=== PATIENT | female | born 1950 | race Caucasian/White ===

== ENCOUNTER 2020-06-21 05:10 | Outpatient (REF) | payer MEDICARE, SELFPAY | END 2020-06-21 05:11 | disposition home or self-care (01) | LOC: HO.RADIR 05:10 | PROVIDERS: Visit Provider Anesthesiology | DX: G89.4 Chronic pain syndrome (principal); M46.1 Sacroiliitis, not elsewhere classified; M96.1 Postlaminectomy syndrome, not elsewhere classified | CPT/HCPCS: 62370 ==

== ENCOUNTER → 2020-07-28 15:41 | Outpatient (BNVA) | payer MEDICARE, SELFPAY | PROVIDERS: PCP Internal Medicine; Visit Provider Anesthesiology | DX: M46.1 Sacroiliitis, not elsewhere classified (principal); G89.4 Chronic pain syndrome; M96.1 Postlaminectomy syndrome, not elsewhere classified | CPT/HCPCS: Q3014 ==

== ENCOUNTER 2020-08-16 05:25 | Outpatient (REF) | payer MEDICARE, SELFPAY | END 2020-08-16 05:26 | disposition home or self-care (01) | LOC: HO.RADIR 05:25 | PROVIDERS: Visit Provider Anesthesiology | DX: Z13.89 Encounter for screening for other disorder (principal) ==

== ENCOUNTER 2020-12-20 06:22 | Outpatient (REF) | payer MEDICARE, SELFPAY | END 2020-12-20 06:23 | disposition home or self-care (01) | LOC: HO.RADIR 06:22 | PROVIDERS: Visit Provider Anesthesiology | DX: Z13.89 Encounter for screening for other disorder (principal) ==

== ENCOUNTER → 2021-05-08 13:27 | Outpatient (BNVA) | payer MEDICARE, SELFPAY | PROVIDERS: PCP Internal Medicine; Visit Provider Anesthesiology | DX: M46.1 Sacroiliitis, not elsewhere classified (principal); M96.1 Postlaminectomy syndrome, not elsewhere classified; G89.4 Chronic pain syndrome; I87.2 Venous insufficiency (chronic) (peripheral) | CPT/HCPCS: 99212 ==

== ENCOUNTER → 2021-06-20 13:22 | Outpatient (BNVA) | payer MEDICARE, SELFPAY | PROVIDERS: PCP Internal Medicine; Visit Provider Surgery Vascular Surgery | DX: I83.12 Varicose veins of left lower extremity with inflammation (principal) | CPT/HCPCS: 99202 ==

== ENCOUNTER 2021-07-05 12:51 | Outpatient (REF) | payer MEDICARE, SELFPAY ==
--- NOTE | ~2021-07-05 | US_ITS ---
EXAMINATION: US VENOUS LOWER EXTREMITY, BILATERAL (REFLUX EXAM) CLINICAL INDICATION: Bilateral lower extremity varicose veins. COMPARISON: None. TECHNIQUE: Color flow triplex imaging and compression Doppler was performed to evaluate both the deep and the superficial systems bilaterally. To evaluate the superficial system, the examination was performed in the upright position. Color-flow Doppler ultrasound and compression ultrasound were utilized. In addition, maneuvers were utilized to demonstrate reflux. FINDINGS: SUPERFICIAL ULTRASOUND WITH DOPPLER OF RIGHT LOWER EXTREMITY Great Saphenous Vein: Saphenofemoral junction/proximal thigh: 0.5 cm; Reflux: No evidence of reflux. Max diameter: 0.5 Min diameter: 0.2 Reflux: Segmental reflux below the knee measuring greater than 1 second. Duplicated Medial Great Saphenous Vein: Max Diameter: None Imaged Reflux: NA Duplicated Lateral Great Saphenous Vein: Diameter: None Imaged Reflux: NA Small Saphenous Vein: Saphenopopliteal junction: 0.3 cm; Reflux: No evidence of reflux. Min diameter: 0.2 Reflux: Segmental reflux at the distal calf measuring greater than 3.3 seconds Vein Of Giacomini: None Imaged. Perforators: Location: Thigh and proximal calf measuring 2 and 3 mm respectively. 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 Varicosities: Location: Mid thigh, 4 mm Reflux: None DEEP VENOUS ULTRASOUND OF THE RIGHT LOWER EXTREMITY: Common Femoral Vein: Compressible, normal respiratory variation and augmented flow. Femoral vein: Compressible, normal color flow and augmentation. Popliteal Vein: Compressible, normal augmentation. Deep Reflux: There is no evidence of reflux in the deep system in either the common femoral vein or the popliteal vein. Daniel's Cyst: There is no evidence of a Daniel's cyst. SUPERFICIAL ULTRASOUND WITH DOPPLER OF LEFT LOWER EXTREMITY Great Saphenous Vein: Saphenofemoral junction/proximal thigh: 0.6 cm; Reflux: Greater than 0.5 seconds of reflux Max diameter: 0.6 Min diameter: 0.2 Reflux: There is reflux throughout the proximal great saphenous vein measuring between 0.5 seconds and 3.3 seconds. Duplicated Medial Great Saphenous Vein: Max Diameter: 0.3 cm at the junction Reflux: None Duplicated Lateral Great Saphenous Vein: Diameter: 0.3 cm at the junction Reflux: None Small Saphenous Vein: Saphenopopliteal junction: 0.2 cm; Reflux: No evidence of reflux. Min diameter: 0.1 Reflux: No evidence of reflux. Vein Of Giacomini: None Imaged. PERFORATORS: Location: Mid thigh and at the knee, measuring 3 and 2 mm respectively. Reflux: None Varicosities: Location: None Imaged Reflux: NA DEEP VENOUS ULTRASOUND OF THE LEFT LOWER EXTREMITY: Common Femoral Vein: Compressible, normal respiratory variation and augmented flow. Femoral vein: Compressible, normal color flow and augmentation. Popliteal Vein: Compressible, normal augmentation. Deep Reflux: There is no evidence of reflux in the deep system in either the common femoral vein or the popliteal vein. Daniel's Cyst: There is no evidence of a Daniel's cyst. US/US venous duplex LE BI IMPRESSION: 1. Left great saphenous venous insufficiency. 2. Segmental right great saphenous venous insufficiency below the knee. 3. Segmental right small saphenous venous insufficiency at the distal calf. 4. No evidence of DVT or deep venous insufficiency.
== END 2021-07-05 12:52 | disposition home or self-care (01) ==
LOC: HO.US 12:51
PROVIDERS: Visit Provider Surgery Vascular Surgery
DX: I83.12 Varicose veins of left lower extremity with inflammation (principal)
CPT/HCPCS: 93970

== ENCOUNTER → 2021-07-18 13:03 | Outpatient (BNVA) | payer MEDICARE, SELFPAY | PROVIDERS: PCP Internal Medicine; Visit Provider Surgery Vascular Surgery | DX: I83.12 Varicose veins of left lower extremity with inflammation (principal) | CPT/HCPCS: 99212 ==

== ENCOUNTER → 2021-07-19 10:53 | Outpatient (BNVA) | payer MEDICARE, SELFPAY | PROVIDERS: PCP Internal Medicine; Visit Provider Anesthesiology | DX: M46.1 Sacroiliitis, not elsewhere classified (principal); M96.1 Postlaminectomy syndrome, not elsewhere classified; I87.2 Venous insufficiency (chronic) (peripheral); G89.4 Chronic pain syndrome; Z96.89 Presence of other specified functional implants | CPT/HCPCS: 99212 ==

== ENCOUNTER → 2021-07-28 07:30 | Outpatient (BNVA) | payer MEDICARE, SELFPAY | PROVIDERS: PCP Internal Medicine; Visit Provider Surgery Vascular Surgery | DX: I83.12 Varicose veins of left lower extremity with inflammation (principal) | CPT/HCPCS: 36475 ==

== ENCOUNTER 2021-07-31 12:48 | Outpatient (REF) | payer MEDICARE, SELFPAY ==
--- NOTE | ~2021-07-31 | US_ITS ---
EXAMINATION: US VENOUS ULTRASOUND WITH DOPPLER LOWER EXTREMITY, LEFT CLINICAL INFORMATION: Pain and swelling post RFA. Rule out DVT. COMPARISON: Previous exam June 2021 TECHNIQUE: Ultrasound of the deep veins is performed from the hip to the calf with compression sonography and color and pulse Doppler assessment. Spectral analysis with color-flow imaging is performed. FINDINGS: There is normal venous compression and respiratory variation and augmented flow. The visualized common femoral vein, superficial femoral vein, profunda femoral vein, popliteal vein, and the trifurcation region shows no evidence of deep venous thrombosis. There is echogenic material seen in the left greater saphenous vein post ablation. This is 2 cm from the saphenofemoral junction. The left greater saphenous vein is closed. The contralateral right common femoral vein is patent. US/US venous duplex LE LT IMPRESSION: No DVT demonstrated in the left lower extremity.
== END 2021-07-31 12:49 | disposition home or self-care (01) ==
LOC: HO.HMGCX 12:48
PROVIDERS: PCP Internal Medicine; Visit Provider Surgery Vascular Surgery
DX: M79.605 Pain in left leg (principal)
CPT/HCPCS: 93971

== ENCOUNTER → 2021-08-10 14:29 | Outpatient (BNVA) | payer MEDICARE, SELFPAY | PROVIDERS: PCP Internal Medicine; Visit Provider Surgery Vascular Surgery | DX: I83.12 Varicose veins of left lower extremity with inflammation (principal) | CPT/HCPCS: 99212 ==

== ENCOUNTER 2021-08-15 06:01 | Outpatient (REF) | payer MEDICARE, SELFPAY | END 2021-08-15 06:02 | disposition home or self-care (01) | LOC: HO.RADIR 06:01 | PROVIDERS: Visit Provider Anesthesiology | DX: M46.1 Sacroiliitis, not elsewhere classified (principal); G89.4 Chronic pain syndrome; M96.1 Postlaminectomy syndrome, not elsewhere classified; I87.2 Venous insufficiency (chronic) (peripheral) | CPT/HCPCS: 20552; J3300 ==

== ENCOUNTER → 2021-09-13 10:01 | Outpatient (BNVA) | payer MEDICARE, SELFPAY | PROVIDERS: PCP Internal Medicine; Visit Provider Anesthesiology | DX: M46.1 Sacroiliitis, not elsewhere classified (principal); M96.1 Postlaminectomy syndrome, not elsewhere classified; G89.4 Chronic pain syndrome; I87.2 Venous insufficiency (chronic) (peripheral) | CPT/HCPCS: Q3014 ==

== ENCOUNTER → 2021-12-18 13:18 | Outpatient (BNVA) | payer MEDICARE, SELFPAY | PROVIDERS: PCP Internal Medicine; Visit Provider Internal Medicine | DX: M25.562 Pain in left knee (principal); G57.82 Other specified mononeuropathies of left lower limb | CPT/HCPCS: 99212 ==

== ENCOUNTER 2022-01-03 05:54 | Outpatient (REF) | payer MEDICARE, SELFPAY | END 2022-01-03 05:55 | disposition home or self-care (01) | LOC: HO.RADIR 05:54 | PROVIDERS: Visit Provider Internal Medicine | DX: G57.82 Other specified mononeuropathies of left lower limb (principal); M25.562 Pain in left knee | CPT/HCPCS: 64447; J2795; Q9967 ==

== ENCOUNTER → 2022-01-15 16:16 | Outpatient (BNVA) | payer MEDICARE, SELFPAY | PROVIDERS: PCP Internal Medicine; Visit Provider Internal Medicine | DX: Z13.89 Encounter for screening for other disorder (principal) | CPT/HCPCS: Q3014 ==

== ENCOUNTER 2022-03-21 09:55 | Day surgery (SDC) | payer MEDICARE, SELFPAY ==
[2022-03-21 10:02] VITALS: BMI 28.1
[2022-03-21 10:11] VITALS: BP 132/70; PULSE 69; RESP 16; TEMP 36.3; O2SAT 99
--- NOTE | 2022-03-21 11:16 | MHC.SHP ---
Pre-Procedural Eval Section A Date of Service: 03/21/22 The patient is an INPATIENT: No Changes since office visit: Yes Patient answered all questions The History & Physical has been completed within 30 days and I have reviewed it.: No Section B Chief Complaint: Pain in left knee Relevant Family History (Specify if Yes): No Relevant Social History: None Present Medications: see Short Stay Collaborative assessment Medical History: No relevant PMH History of Previous Operations: Relevant previous surgery/procedure and date(s) (left TKR) Allergies: Allergies Allergy/AdvReac Type Severity Reaction Status Date / Time No Known Allergies Allergy Verified 01/29/22 14:24 Review of Systems Sugical H&P ROS: Negative: Constitution, Cardiovascular, Respiratory and Neurological Exam Surgical H&P Exam: Normal: HEENT, Normal: Heart, Normal: Lungs and Normal: Extremities Plan Diagnosis/Plan: Unchanged I have reviewed the history and physical and performed a pertinent physical examination on my patient. No changes have occurred unless specified.
--- NOTE | 2022-03-21 11:17 | P.BOP_ITS ---
Brief Operative Note Date of Service: 03/21/22 Pre-op diagnosis: Chronic left knee pain Post-op diagnosis: same Procedure: Left saphenous nerve temporary peripheral nerve stimulator placement Implants: [employer] PNS system Surgeon: Kieran Bangura MD Anesthesia: local Was an Bullet Lubricating Machine Operator used for this Procedure?: No Estimated blood loss (mL): 2 Pathology: none sent Condition: stable Disposition: PACU
[2022-03-21 12:06] VITALS: BP 151/75; PULSE 61; RESP 17; TEMP 36.7; O2SAT 99
[2022-03-21 12:21] VITALS: BP 146/77; PULSE 63; RESP 18; TEMP 36.7; O2SAT 99
--- NOTE | 2022-03-21 13:35 | W.PM.OPN ---
Operative Note Operative Note Date of Service: 03/21/22 Narrative: Peripheral Nerve Stimulation Temporary Lead Placement, Ultrasound-Guided, Saphenous Nerve, Left ? After the risks, benefits and alternatives were discussed with the patient and informed consentwas obtained, patient was placed in the supine position and padded to foster comfort. Appropriate skin and bony landmarks were identified, and pertinent vascular structures were located. The skin overlying the needle entry site was prepped and draped in sterile fashion. Ultrasound was used to identify the femoral artery, the femoral vein and the saphenous nerve. After identifying and marking the intended target along the course of the Saphenous nerve, the skin around the planned entry point and the subcutaneous tissues were injected with local anesthetic. An introducer needle and stimulating probe were assembled, inserted and advanced along the intended course of the saphenous; nerve, taking care to maintain the proper depth of insertion as the introducer was advanced under ultrasound guidance. The introducer needle was delivered to a location in proximity to the nerve taking care not to puncture the femoral artery or the vein. Multiple stimulation parameters were used to deliver stimulation to the saphenous nerve in concert with stimulating at multiple positions around the nerve. Nerve target acquisition was confirmed noting generation of sensory and mild motor effects (paresthesia, muscle tension, etc) in the medial knee; corresponding to the distribution of the saphenous nerve. Various electrical parameter combinations were tested, and the lead location was adjusted (physically relocated under ultrasound guidance) until the patient indicated medial knee paresthesia and tension overlapping the distribution of the patient?s typical region of pain. The stimulating probe was removed from the introducer and a percutaneous lead was guided through the needle and delivered to a location in similar proximity to the nerve. Final location was verified with electrical stimulation and documented. The introducer needle was removed, and the exposed end of the percutaneous lead was attached to an external stimulator unit. Various electrical parameter combinations were again tested until the patient indicated paresthesia and muscle tension overlapping the distribution of the patient?s typical region of pain. After confirming that lead impedance was in the normal range, the external unit was detached, the needle was removed, and the lead was anchored at the skin. The lead was threaded into the connector block and electrical continuity and desired patient response was confirmed. The connector block was attached to the external stimulator unit. The site was covered with a sterile occlusive dressing. A final ultrasound image was taken to document final placement. The patient was observed for stability of vital signs and comfort.
== END 2022-03-21 13:20 | disposition home or self-care (01) ==
PROVIDERS: PCP Internal Medicine; Visit Provider Internal Medicine
PROC: (CPT 64555; principal; 2022-03-21 11:00)
DX: M25.562 Pain in left knee (principal); G57.82 Other specified mononeuropathies of left lower limb; G89.4 Chronic pain syndrome; M96.1 Postlaminectomy syndrome, not elsewhere classified; M46.1 Sacroiliitis, not elsewhere classified; I87.2 Venous insufficiency (chronic) (peripheral); Z96.652 Presence of left artificial knee joint; Z90.49 Acquired absence of other specified parts of digestive tract; Z87.891 Personal history of nicotine dependence
CPT/HCPCS: 64555; C1778

== ENCOUNTER → 2022-05-18 08:57 | Outpatient (BNVA) | payer MEDICARE, SELFPAY | PROVIDERS: PCP Internal Medicine; Visit Provider Internal Medicine | DX: M25.562 Pain in left knee (principal); M96.1 Postlaminectomy syndrome, not elsewhere classified; G89.4 Chronic pain syndrome | CPT/HCPCS: 99212 ==

== ENCOUNTER 2022-05-21 13:34 | Outpatient (REF) | payer MEDICARE, SELFPAY ==
--- NOTE | ~2022-05-21 | XR_ITS ---
EXAMINATION: XR LUMBOSACRAL SPINE CLINICAL INFORMATION: Spondylosis without radiculopathy. COMPARISON: None TECHNIQUE: Three views of the lumbosacral spine. FINDINGS: Patient is status post posterior fusion L2 through S1. Interbody disc spaces are seen L3 through S1. No hardware failure is appreciated. There is severe degenerative disc disease seen at the L1-L2 disc space level with loss of disc space and marginal spurring and sclerosis. Sacroiliac joints appear unremarkable. XR/XR lumbar spine 2-3V IMPRESSION: Postoperative change without evidence of hardware failure. Status post right-sided pedicle screw and jb fixation L2 through S1 and left-sided L4 through S1. Severe degenerative disc disease L1-L2 level.
== END 2022-05-21 13:35 | disposition home or self-care (01) ==
LOC: HO.XRAY 13:34
PROVIDERS: PCP Internal Medicine; Visit Provider Internal Medicine
DX: M47.816 Spondylosis without myelopathy or radiculopathy, lumbar region (principal)
CPT/HCPCS: 72100

== ENCOUNTER → 2022-05-28 11:34 | Outpatient (BNVA) | payer MEDICARE, SELFPAY | PROVIDERS: PCP Internal Medicine; Visit Provider Anesthesiology | DX: Z51.81 Encounter for therapeutic drug level monitoring (principal); M46.1 Sacroiliitis, not elsewhere classified; G89.4 Chronic pain syndrome; M96.1 Postlaminectomy syndrome, not elsewhere classified; Z97.8 Presence of other specified devices | CPT/HCPCS: 99202 ==

== ENCOUNTER → 2022-07-23 11:30 | Outpatient (BNVA) | payer MEDICARE, SELFPAY | PROVIDERS: PCP Internal Medicine; Visit Provider Anesthesiology | DX: Z45.1 Encounter for adjustment and management of infusion pump (principal); G89.4 Chronic pain syndrome; M46.1 Sacroiliitis, not elsewhere classified; M96.1 Postlaminectomy syndrome, not elsewhere classified | CPT/HCPCS: 99212 ==

== ENCOUNTER 2023-02-27 11:00 | Outpatient (AMB) | payer MEDICARE, SELFPAY ==
--- NOTE | 2023-02-27 11:12 | MHC.OFFVIS ---
Intake Vital Signs 02/27/23 11:21 Height 5 ft 7 in Weight 184 lb 6 oz BMI 28.9 BP 133/64 Blood Pressure Location Rt brachial Position Sitting Pulse 78 Pulse Source Pulse Oximeter Pulse Oximetry (%) 98 Oxygen Delivery Method Room Air Intake Visit Reasons: ITDD REFILL Intake Note: Pt reports wonderful pain relief with ITDD medication, 08/21 pain level Allergies No Known Allergies Allergy (Verified 02/27/23 11:22) Medication List - Last Reconciled 02/27/23 by Taylor Martinez RN benazepril 10 mg PO DAILY buspirone mg PO duloxetine 60 mg PO DAILY lorazepam 0.5 mg PO DAILY PRN omeprazole 20 mg PO DAILY rosuvastatin 5 mg PO DAILY zolpidem 10 mg PO BEDTIME PRN HPI HPI Comments History of Present Illness Details Leann is back in my office to fill up p her pump. She reports that her pump is at the end of life. She was offered to have it replaced here. However unfortunately she is moving down to [place] and she will receive care there including pump replacement as well as pump refills. The last refill is as below. She is very comfortable today. [facility] Medical History (Updated 12/18/21 @ 13:54 by Kieran Bangura MD) Chronic pain syndrome Chronic venous insufficiency of lower extremity Left knee pain Postlaminectomy syndrome Sacroiliitis Surgical History (Updated 12/18/21 @ 13:27 by Steff Davis CMA) History of back surgery Hx of cholecystectomy Total knee replacement status Social History (Updated 12/18/21 @ 13:28 by Steff Davis CMA) Household Members: [facility] Alcohol intake: current Alcohol intake frequency: holidays/special occasions only Patient Tobacco Use Status: Former Tobacco user Review of Systems Const All systems reviewed & are unremarkable except as noted in HPI and below Physical Exam Vital Signs: Last Vital Signs Pulse 78 02/27/23 11:21 BP 133/64 02/27/23 11:21 Pulse Ox 98 02/27/23 11:21 Oxygen Delivery Method Room Air 02/27/23 11:21 BMI result Body Mass Index 28.9 Const General: comfortable, no acute distress, well developed, alert and awake Eyes Pupils: Equal, round and reactive pupils present EOM: EOMs intact bilaterally Chest Chest palpation & inspection: normal inspection of the chest Resp Effort & Inspection: normal respiratory effort, able to speak in complete sentences, normal respiratory pattern, no audible wheezes and no cough Cardio Jugular venous distension: no JVD Back/Spine/Pelvis Other: tenderness on palpation in paraspinal spinal region in lumbar spine. Loading test is positive. Range of motion in lumbar spine is preserved. Luis Felipe test is negative bilaterally. Neuro Cranial nerves: Yes Equal, round and reactive pupils present Extrem Other: Physical exam of the lower extremities is above. Psych Speech and movement: Normal speech and movement present Affect: normal affect Attitude: cooperative Thought process: Normal thought process present Thought content: Normal thought content present Insight: Good insight present (Psych) Judgement: Good judgement present (Psych) Assessment & Plan Assessment & Plan (1) Sacroiliitis: Code(s): M46.1 - Sacroiliitis, not elsewhere classified (2) Chronic pain syndrome: Code(s): G89.4 - Chronic pain syndrome (3) Postlaminectomy syndrome: Code(s): M96.1 - Postlaminectomy syndrome, not elsewhere classified Plan: We refilled medications of the patient as it is described below. New concentration is 1000 mcg of fentanyl and 4 mg of bupivacaine. This will increase the dose of the bupivacaine for . She is moving down to [place] and she will receive care of there. This is the last refill for her here. She is also need to schedule her pump replacement, it probably will be done in [place]. She is due for pump replacement in January of 2020 for Plan THE PATIENT CAME TODAY IN THE office FOR THE CHANGE OF THE MEDICATION IN her PAIN PUMP. The name and date of were verified and informed consent was obtained for the procedure. The pump was interrogated and the residual amount of fluid was found to be 6.3 mL. SHE WAS POSITIONED supine on the bed AND THE AREA OF THE INTRATHECAL PUMP WAS PREPPED WITH CHLORAPREP. The fenestrated drape was sterilely applied over the area of the pump. Sterile gloves were worn and of the aspiration system was assembled containing 2 in 22 gauge noncoring needle, the needle was connected to extension tubing which was connected to the 20 cc sterile syringe. The pain pump was palpated under the skin in the patient's right buttock area. The needle was inserted through the skin and the central plug of the pain pump and fluid was aspirated. The clear fluid was going into the syringe the total amount of the fluid was 6.5 mL .. After that a new batch of medication was obtained which was containing fentanyl 1000 micro g per mL and bupivacain 4 mg/ ml was obtained.. The admixture was made in 20 cc syringe prepared by [facility] compounding pharmacy. The syringe was connected to the bacterial filter, and then connected to the extension tubing. After that the medication in the syringe was slowly instilled into the pump with aspirations at 15 and 5 cc hough. The pump was left with previous programming of continuous fentanyl 240 micro g per day a and PTM of 35 micro g 2 times a day once in 4 hours . Coding Level of Care Code Est Pt Level 3 (54819) Procedure Only Diagnoses Sacroiliitis M46.1 Chronic pain syndrome G89.4 Postlaminectomy syndrome M96.1
[2023-02-27 11:21] VITALS: BP 133/64; PULSE 78; O2SAT 98; BMI 28.9
== END 2023-02-27 11:44 | disposition home or self-care (01) ==
PROVIDERS: PCP Internal Medicine; Visit Provider Anesthesiology
DX: G89.4 Chronic pain syndrome (principal); M46.1 Sacroiliitis, not elsewhere classified; M96.1 Postlaminectomy syndrome, not elsewhere classified
CPT/HCPCS: 62370; 99213

== ENCOUNTER → 2023-02-27 11:00 | Outpatient (BNVA) | payer MEDICARE, SELFPAY | PROVIDERS: PCP Internal Medicine; Visit Provider Anesthesiology | DX: G89.4 Chronic pain syndrome (principal); M96.1 Postlaminectomy syndrome, not elsewhere classified; M46.1 Sacroiliitis, not elsewhere classified; Z45.1 Encounter for adjustment and management of infusion pump | CPT/HCPCS: 62370; 99212 ==